=== PATIENT | female | born 1960 | race Caucasian/White ===

== ENCOUNTER → 2020-10-31 | Outpatient (CLI) | payer OTHER ==
--- NOTE | 2020-10-31 12:27 | XR ---
EXAMINATION TYPE: XR chest 2V DATE OF EXAM: 10/31/2020 COMPARISON: None HISTORY: 59-year-old female shortness of breath, R06.02 TECHNIQUE: Frontal and lateral views FINDINGS: Heart normal size. Aorta and pulmonary vasculature within normal limits. No consolidation or pleural effusion. IMPRESSION: No acute cardiopulmonary process.
== END | disposition home or self-care (01) ==
LOC: RADXRMAIN 11:45
PROVIDERS: ATTEND Nurse Practitioner Gerontology
DX: R06.02 Shortness of breath (principal)
CPT/HCPCS: 71046

== ENCOUNTER → 2020-11-02 | Outpatient (CLI) | payer OTHER ==
--- NOTE | 2020-11-03 11:59 | ECHOF ---
Referral Reason:R06.02 Shortness of Breath MEASUREMENTS -------- HEIGHT: 160.0 cm WEIGHT: 52.2 kg BP: RVIDd: 2.8 cm (< 3.3) IVSd: 0.9 cm (0.6 - 1.1) LVIDd: 3.2 cm (3.9 - 5.3) LVPWd: 1.2 cm (0.6 - 1.1) IVSs: 1.2 cm LVIDs: 2.1 cm LVPWs: 1.7 cm LAESV Index (A-L): 13.01 ml/m Ao Diam: 3.0 cm (2.0 - 3.7) AV Cusp: 1.9 cm (1.5 - 2.6) MV EXCURSION: 16.450 mm (> 18.000) MV EF SLOPE: 94 mm/s (70 - 150) EPSS: 0.6 cm MV E Martin: 0.60 m/s MV DecT: 195 ms MV A Martin: 0.77 m/s MV E/A Ratio: 0.78 AR PHT: 777 ms RAP: 5.00 mmHg RVSP: 24.17 mmHg FINDINGS -------- Sinus rhythm. This was a technically adequate study. The left ventricular size is normal. Left ventricular wall thickness is normal. Overall left vent ricular systolic function is normal with, an EF between 55 - 60 %. The diastolic filling pattern is normal for the age of the patient 12.28. The right ventricle is mildly enlarged. Normal LA size by volume 22+/-6 ml/m2. The right atrial size is normal. Interatrial and interventricular septum intact. The aortic valve is trileaflet and appears structurally normal. Trace amount of aortic regurgitatio n. There is no evidence of aortic stenosis. There is trace mitral regurgitation. [id number] tricuspid regurgitation present. There is no evidence of pulmonary hypertension. The right ventricular systolic pressure, as measured by Doppler, is 24.17mmHg. There is no pulmonic regurgitation present. The aortic root size is normal. Normal inferior vena cava with normal inspiratory collapse consistent with estimated right atrial pre ssure of 5 mmHg. There is no pericardial effusion. CONCLUSIONS -------- 1. The left ventricular size is normal. 2. Left ventricular wall thickness is normal. 3. Overall left ventricular systolic function is normal with, an EF between 55 - 60 %. 4. The diastolic filling pattern is normal for the age of the patient 12.28 5. The right ventricle is mildly enlarged. 6. Trace amount of aortic regurgitation. 7. There is trace mitral regurgitation. 8. Kmxa-ku-[id number] tricuspid regurgitation present. SHOW HOST/HOSTESS: Daisy Reed RDCS
== END | disposition home or self-care (01) ==
LOC: RADECHMAIN 12:09
PROVIDERS: ATTEND Internal Medicine Geriatric Medicine
DX: I08.3 Combined rheumatic disorders of mitral, aortic and tricuspid valves (principal)
CPT/HCPCS: 93306

== ENCOUNTER → 2020-11-23 | Outpatient (CLI) | payer OTHER ==
--- NOTE | 2020-11-23 13:31 | CT ---
EXAMINATION TYPE: CT sinus wo con DATE OF EXAM: 11/23/2020 COMPARISON: None HISTORY: c/o sinus congestion and infections CT DLP: 461.6 mGycm CONTRAST: None The paranasal sinuses are examined in the axial plane at 2 mm thick sections. Reconstructed images i n the coronal plane were obtained. There is dental amalgam scatter artifact The maxillary sinuses are clear. The ethmoid air cells are clear. The sphenoid sinuses are clear. Frontal sinuses are aplastic. The septum is evaluated. There is septal deviation to the left. The ostiomeatal units are patent. Maxillary spine is intact. Nasal bones appear intact. IMPRESSIONS: 1. No suspicious changes suggesting acute or chronic sinusitis.
== END | disposition home or self-care (01) ==
LOC: RADCTMAIN 12:38
PROVIDERS: ATTEND Otolaryngology
DX: J32.9 Chronic sinusitis, unspecified (principal)
CPT/HCPCS: 70486

== ENCOUNTER → 2022-05-22 | Outpatient (CLI) | payer OTHER ==
--- NOTE | 2022-05-22 16:45 | US ---
EXAMINATION TYPE: US pelvis complete transvag DATE OF EXAM: 05/22/2022 COMPARISON: NONE CLINICAL HISTORY: 61-year-old female R10.2 PELVIC PAIN. Pelvic pain. Hx of partial hysterectomy in 15 03. Patient has both ovaries. Hx ovarian cysts, endometriosis per patient. A1. Hx 1 miscarriage . TECHNIQUE: Transabdominal sonographic images of the pelvis were acquired. Transvaginal sonographic i mages were medically necessary to better assess the following anatomy: Ovaries Date of LMP: At time of hysterectomy. FINDINGS: EXAM MEASUREMENTS: Uterus: Surgically absent. Right Ovary: 2.6 x 1.4 x 1.5 cm for a volume of 2.9 mL. Left Ovary: 2.6 x 1.1 x 1.7 cm for a volume of 2.6 mL. 1. Uterus: Surgically absent. 2. Endometrium: Surgically absent. 3. Right Ovary: Anechoic area seen: 1.2 x 1.1 x 1.0 cm. 4. Left Ovary: Appears wnl 5. Bilateral Adnexa: No abnormalities seen, although large amount of peristalsing bowel and bowel ga s was present. 6. Posterior cul-de-sac: Appears wnl IMPRESSION: 1. Status post hysterectomy. 2. A 1.2 cm cyst of the right ovary. In a postmenopausal female, annual ultrasound surveillance is re commended.
== END | disposition home or self-care (01) ==
LOC: RADUSWWP 15:05
PROVIDERS: ATTEND Internal Medicine Geriatric Medicine
DX: N83.201 Unspecified ovarian cyst, right side (principal); Z90.710 Acquired absence of both cervix and uterus; Z78.0 Asymptomatic menopausal state
CPT/HCPCS: 76830; 76856

== ENCOUNTER 2022-10-30 08:26 | Day surgery (SDC) | payer OTHER ==
[2022-10-26 13:19] VITALS: BMI 20.3
[~2022-10-30 08:26] MED LIST: LACTATED RINGERS 1,000 ML IV SCH
[2022-10-30 09:20] VITALS: RESP 16; TEMP 97.7
[2022-10-30] MEDS ORDERED: LIDOCAINE 2% INJ 20 MG/ML (2 ML VIAL) ONE (10:00)
[2022-10-30] MEDS ORDERED: PROPOFOL 10 MG/ML 20 ML VIAL IV ONE (10:00)
--- NOTE | 2022-10-30 10:09 | P.PCN ---
Date of Procedure: 10/30/22 Procedure(s) Performed: BRIEF HISTORY: Patient is a 61-year-old, pleasant, white female scheduled for an upper endoscopy as a part of evaluation of GERD and intermittent dysphagia to solids and liquids for the last several months duration. PROCEDURE PERFORMED: Esophagogastroduodenoscopy with biopsy and dilation. PREOPERATIVE DIAGNOSIS: tuan GERD and intermittent dysphagia to solids and liquids of several months duration. IV sedation per anesthesia. PROCEDURE: After informed consent was obtained, the patient was brought into the endoscopy unit. IV sedation was administered by Anesthesia under continuous monitoring. Initially the Olympus GIF-140 video endoscope was inserted into the mouth. Esophagus intubated without any difficulty. It was gradually advanced into the stomach and duodenum and carefully examined. The bulb and the second part of the duodenum appeared normal. The scope at this time was withdrawn to the stomach, adequately insufflated with air, and upon careful examination, mucosa of the antrum, body, cardia and the fundus appeared normal. The scope was then withdrawn into the esophagus. The GE junction was located at 39 cm from the incisors. There was a distal esophageal stricture identified that was dilated using 15-18 mm TTS balloon in a sequential fashion for 60 seconds. Following dilation there was some The esophagus appeared normal. There were no erosions or ulcerations seen and the patient tolerated the procedure well. IMPRESSION: 1. Distal esophageal stricture status post balloon dilation using 15-18 mm TTS balloon as described above. 2. Mild gastritis RECOMMENDATIONS: The findings of this examination were discussed with the patient as well as a family. She was advised to be on clear liquid diet for lunch. Trial of omeprazole 20 mg daily for possible GERD causing the symptoms. Follow up in office in 3-4 weeks '
[2022-10-30 10:43] VITALS: BP 101/65; PULSE 63
== END 2022-10-30 11:20 | disposition home or self-care (01) ==
LOC: ORWHC2ENDO 08:26
PROVIDERS: ATTEND Internal Medicine Gastroenterology
DX: K29.50 Unspecified chronic gastritis without bleeding (principal); K22.2 Esophageal obstruction; K21.00 Gastro-esophageal reflux disease with esophagitis, without bleeding; Z87.891 Personal history of nicotine dependence; Z88.6 Allergy status to analgesic agent; Z79.899 Other long term (current) drug therapy
CPT/HCPCS: 88305; 43239; 43249; J2704; J2001; C1726

== ENCOUNTER → 2022-11-28 | Outpatient (CLI) | payer OTHER ==
--- NOTE | 2022-11-28 10:34 | US ---
EXAMINATION TYPE: US transvaginal DATE OF EXAM: 11/28/2022 COMPARISON: NONE CLINICAL INDICATION: Female, 61 years old with history of N83.209 UNSPECIFIED OVARIAN CYST, UNSPECIFI ED SIDE; partial hysterectomy 2010 follow up to previous. TECHNIQUE: Transvaginal (TV). EXAM MEASUREMENTS: Uterus: Surgically absent Endometrial Stripe: Surgically absent Right Ovary: 2.4 x 1.7 x 2.0 cm Left Ovary: 2.0 x 1.5 x 1.1 cm 1. Uterus: Surgically absent 2. Endometrium: Surgically absent 3. Right Ovary: Follicle seen .9 x .8 x .8 cm. 4. Left Ovary: wnl 5. Bilateral Adnexa: wnl 6. Posterior cul-de-sac: wnl IMPRESSION: Hysterectomy changes. Vaginal cuff is unremarkable. Right ovarian follicle.
== END | disposition home or self-care (01) ==
LOC: RADUSWWP 09:25
PROVIDERS: ATTEND Internal Medicine Geriatric Medicine
DX: N83.209 Unspecified ovarian cyst, unspecified side (principal); Z90.710 Acquired absence of both cervix and uterus
CPT/HCPCS: 76830